=== PATIENT | male | born 1960 | race African-American/Black ===

== ENCOUNTER 2018-06-14 13:11 | Day surgery (SDC) | payer OTHER ==
[2018-06-13 09:20] VITALS: BMI 37.6
--- NOTE | 2018-06-14 08:19 | HP ---
Satellite H - Chief Complaint Chief Complaint: left middle finger pain/locking - Past Medical History Allergies/Adverse Reactions: Allergies Allergy/AdvReac Type Severity Reaction Status Date / Time malin Allergy Verified 06/13/18 09:21 - Current Medications Current Medications: Home Medications Medication Instructions Recorded Ascorbic Acid [Vitamin C] 1,000 mg PO DAILY 06/13/18 Atenolol [Tenormin -] 25 mg PO DAILY 06/13/18 Ibuprofen [Advil -] 200 mg PO PRN 06/13/18 Multivitamin [One-Daily 1 each PO DAILY 06/13/18 Multi-Vitamin] Hydrocodone/Acetaminophen 1 each PO Q6H #20 tablet MDD 4 06/14/18 [Hydrocodone-Acetamin 5-325 mg] Satellite Physical Exam - Physical Examination General Appearance: Well Nourished, Well Developed, Alert & Oriented x3 ENT: Clear Lung: Normal air movement Heart: Regular rate & rhythm Extremities: Other (left middle finger- + locking, + ttp a1 leonela, nvi) Neurological: Intact, Alert, Oriented Satellite Impression/Plan - Impression/Plan Impression: left middle trigger finger Operative Procedure: left middle trigger finger release Date to be Performed: 06/14/18
[~2018-06-14 13:11] MED LIST: ceFAZolin SODIUM 1 GM VIAL IVPB ONE
[2018-06-14] MEDS ORDERED: PROPOFOL 20 ML ONE (14:26)
[2018-06-14] MEDS ORDERED: MIDAZOLAM HCL 2 MG/2 ML SINGLE DOSE VIAL ONE ×2 (14:26→14:53)
[2018-06-14] MEDS ORDERED: SUCCINYLCHOLINE CHLORIDE 200 MG/10 ML VIAL ONE (14:30)
--- NOTE | 2018-06-14 14:34 | OP ---
Operative Note - Note: Operative Date: 06/14/18 Pre-Operative Diagnosis: left middle trigger finger Operation: left middle finger trigger release, tendon sheath excision Post-Operative Diagnosis: Same as Pre-op Surgeon: Alexandro Romo Anesthesiologist/LEACH TANK TENDER: Alejandro Asif Anesthesia: Local, MAC Specimens Removed: tendon sheath Estimated Blood Loss (mls): 0 Blood Volume Replaced (mls): 0 Fluid Volume Replaced (mls): 700 Operative Report Dictated: Yes
[2018-06-14] MEDS ORDERED: ONDANSETRON 4 MG/2 ML VIAL IVPUSH PRN (14:37)
[2018-06-14] MEDS ORDERED: oxyCODONE HCL 5 MG TABLET PO PRN ×2 (14:37)
[2018-06-14] MEDS ORDERED: ceFAZolin SODIUM 1 GM VIAL IVPB ONE (14:40)
[2018-06-14] MEDS ORDERED: LACTATED RINGERS SOLUTION 1,000 ML IV SCH (14:45)
[2018-06-14] MEDS ORDERED: BUPIVACAINE HCL/PF 0.5% (5MG/ML) 10 ML VIAL ONE (14:48)
[2018-06-14] MEDS ORDERED: LIDOCAINE HCL 1%, 10 MG/ML (20ML VIAL) ONE (14:48)
[2018-06-14 15:47] VITALS: TEMP 97.8
--- NOTE | 2018-06-14 16:47 | OP ---
DATE OF OPERATION: 06/14/2018 PREOPERATIVE DIAGNOSIS: Left middle finger trigger finger. POSTOPERATIVE DIAGNOSIS: Left middle finger trigger finger. PROCEDURE: Left middle finger trigger finger release, tendon sheath incision. SURGEON: Hood Desai M.D. TREASURY SPECIALIST: None. ANESTHESIOLOGIST: CATHERINE Alberto ANESTHESIA: MAC anesthesia, local injection of 10% 0.5% Marcaine 1% lidocaine mixed DRAINS: None. COMPLICATIONS: None. SPECIMENS: None. BLOOD LOSS: Minimal. BLOOD GIVEN: None. FLUID REPLACEMENT: 500 mL Plasmalyte. INDICATIONS: After understanding the potential risks, complications, benefits, alternatives, benefits of the surgery vs. non-surgical treatment, the patient elected to undergo this procedure. PROCEDURE: The patient was brought to the operating room, IV was placed, IV sedation was given. One gram of intravenous Ancef given. A tourniquet was applied to the left upper arm and the left upper extremity was prepped and draped in sterile fashion. The entire case was done under 3.8 loupe magnification. A marking pen was utilized to sedrick out a longitudinal incision in an already existing skin crease at the base of the left middle finger. Then 10 mL of 0.5% Marcaine mixed with 1% Lidocaine was injected in and around the incision. The left upper extremity was elevated, exsanguinated with an Esmarch bandage and the tourniquet inflated to 250 mmHg. A No. 15 scalpel blade was utilized to cut down through the skin. Subcutaneous hemostasis was achieved with the bipolar cautery. Additional dissection was done with Littler scissors until I was able to directly visualize the A1 leonela sheath in its entirety. Self-retaining retractors were placed into the wound. A free air elevator was used to free up the tissue on the radial side, the ulnar side distally and proximally under better visualization of A1 leonela sheath. Next, using a fresh No. 15 scalpel blade, I excised the central one-third of the A1 leonela sheath and passed it off the field as specimen, tendon sheath, middle finger. I then completed the release, both distally and proximally, and brought the FDS and FDP tendons out through the wound with a Ragnell retractor. There were no abnormal points of compression. I was able to move the middle finger without the tendons bunching up at all. The area was then copiously irrigated and washed out. I then checked one more time to make sure there were no abnormal points of compression. None were seen and therefore closure was begun. One stitch using 4-0 Vicryl was used in the deep dermal layer. Skin was reapproximated with 4-0 Nylon sutures in a horizontal mattress fashion. The area was then washed and dried, covered with Xeroform gauze, sterile 4x4s, fluffs between the fingers, Webril and Coban. The tourniquet was taken down after a total tourniquet time of 18 minutes. There were no complications during the case. The patient tolerated the procedure well and was brought to the Ambulatory recovery Room in stable condition. HOOD DESAI M.D. [id number]
[2018-06-14 17:07] VITALS: BP 134/83; PULSE 50
== END 2018-06-14 17:07 | disposition home or self-care (01) ==
LOC: JASU-SURG 13:11
PROVIDERS: ATTEND Orthopaedic Surgery
PROC: 0LN80ZZ Release Left Hand Tendon, Open Approach (ICD-10-PCS; principal; 2018-06-14 14:30)
DX: M65.332 Trigger finger, left middle finger (principal)